=== PATIENT | male | born 1965 | race African-American/Black ===

== ENCOUNTER 2019-05-09 10:43 | Emergency (ER) | payer MEDICAID ==
[~2019-05-09] VITALS: Ht 172.7 cm; Wt 99.0 kg
[2019-05-09] MEDS ORDERED: MORPHINE SULFATE 4 MG/ML CPJ (NOT FOR IM USE) IV STA (11:24)
[2019-05-09] MEDS ORDERED: ONDANSETRON HCL 4MG/2ML INJ IV STA (11:24)
[2019-05-09] MEDS ORDERED: SODIUM CHLORIDE 0.9% 1,000 ML IV ONE (11:24)
[2019-05-09 12:19] LABS: HEMATOCRIT. 39.3 % (42.0-52.0); HEMOGLOBIN. 13.4 g/dL (14.0-18.0); MEAN CORPUSCULAR HEMOGLOBIN 29.8 pg (28.0-32.0); MEAN CORPUSCULAR VOLUME 87.4 fL (80.0-94.0); MEAN PLATELET VOLUME 7.4 fl (7.4-10.4); PLATELET 222 x1000/uL (130-400); RED BLOOD CELL COUNT 4.49 mill/uL (4.7-6.1); RED CELL DISTRIBUTION WIDTH 13.1 % (11.6-14.6)
[2019-05-09 12:24] LABS: CHLORIDE 111 mEq/L (98-107)
[2019-05-09 12:28] LABS: PROTHROMBIN TIME 10.7 sec (9.6-11.0)
[2019-05-09 13:26] LABS: PLATELET ESTIMATE NORMAL
[2019-05-09] MEDS ORDERED: KETOROLAC 30MG/ML VIAL IV ONE (14:00)
[2019-05-09 14:13] LABS: CLARITY URINE CLEAR (CLEAR); COLOR URINE YELLOW (YELLOW); KETONES URINE NEGATIVE (NEGATIVE); LEUKOCYTE ESTERASE URINE NEGATIVE (NEGATIVE); NITRITE URINE NEGATIVE (NEGATIVE); OCCULT BLOOD URINE NEGATIVE (NEGATIVE); PH URINE 6.5 (4.5-8.0); PROTEIN URINE NEGATIVE (NEGATIVE); SPECIFIC GRAVITY URINE 1.054 (1.005-1.030); UROBILINOGEN URINE 0.2 E.U./dL (0.2-1.0)
[2019-05-09] MEDS ORDERED: IOHEXOL-300 100 ML BOTTLE ONE (14:58)
[2019-05-09 15:00] VITALS: BP 123/63
== END 2019-05-09 15:02 | disposition home or self-care (01) ==
LOC: ER 10:43
DX: R07.89 Other chest pain (principal); Z98.890 Other specified postprocedural states; W11.XXXA Fall on and from ladder, initial encounter; Y93.89 Activity, other specified; Y92.018 Other place in single-family (private) house as the place of occurrence of the external cause
CPT/HCPCS: 36415; 71045; 71260; 74177; 80053; 81003; 85025; 85610; 86850; 86900; 86901; 93005; 96374; 96375; 99284; J1885; J2270; J2405; J7030; Q9967; Z7610

== ENCOUNTER 2023-03-21 05:32 | Emergency (ER) | payer MEDICAID, OTHER ==
[~2023-03-21] VITALS: Ht 172.7 cm; Wt 95.0 kg
[2023-03-21 05:36] VITALS: BP 162/69; PULSE 108; RESP 18; TEMP 98.4; O2SAT 99
[2023-03-21] MEDS ORDERED: ACETAMINOPHEN WITH CODEINE 300/30MG TABLET PO ONE (07:00)
[2023-03-21] MEDS ORDERED: IBUP-2028 PO (08:06)
[2023-03-21] MEDS ORDERED: T3 PO (08:06)
[2023-03-21] MEDS ORDERED: ACETAMINOPHEN WITH CODEINE 300/30MG TABLET PO SCH (08:30)
== END 2023-03-21 08:43 | disposition home or self-care (01) ==
LOC: ER 05:32
DX: M79.18 Myalgia, other site (principal)
CPT/HCPCS: 71045; 72100; 93005; 99284